=== PATIENT | female | born 1975 | race Two or more races ===

== ENCOUNTER 2016-10-21 19:34 | Emergency (ER) | payer MEDICAID, OTHER ==
[~2016-10-21] VITALS: Ht 162.6 cm; Wt 68.0 kg
[2016-10-21 19:58] VITALS: BP 109/61
== END 2016-10-22 00:37 | disposition left against medical advice (07) ==
LOC: ER 19:41
DX: R31.9 Hematuria, unspecified (principal); Z53.21 Procedure and treatment not carried out due to patient leaving prior to being seen by health care provider